=== PATIENT | male | born 1950 | race Caucasian/White ===

== ENCOUNTER 2022-05-18 10:08 | Outpatient (CLI) | payer MEDICARE, BC, SELFPAY ==
[2022-05-18 17:20] LABS: Chloride* 104 mmol/L (96-114)
[2022-05-18 17:21] LABS: Potassium* 4.5 mmol/L (3.6-5.1); Sodium* 138 mmol/L (135-149)
[2022-05-18 17:23] LABS: Cholesterol* 162 mg/dL (90-199)
[2022-05-18 17:24] LABS: Blood Urea Nitrogen* 19 mg/dL (7-30); Calcium* 9.3 mg/dL (8.4-10.6); Carbon Dioxide* 31 mmol/L (20-32); Creatinine* 1.3 mg/dL (0.5-1.5); Estimated Glomerular Filt Rate 59 ml/min; Glucose* 91 mg/dL (60-115); Triglycerides* 55 mg/dL (40-149)
[2022-05-18 17:25] LABS: HDL Cholesterol* 52 mg/dL (>=40); LDL Cholesterol Calculated 99 mg/dL (<100)
[2022-05-18 17:27] LABS: C Reactive Protein* 0.6 mg/dL (0.5-1.0)
[2022-05-18 17:53] LABS: PSA Screen* 0.46 ng/mL (0.10-4.00)
== END 2022-05-18 10:09 | disposition home or self-care (01) ==
PROVIDERS: PCP Family Medicine; Visit Provider Family Medicine
DX: Z00.00 Encounter for general adult medical examination without abnormal findings (principal); M25.50 Pain in unspecified joint; Z13.1 Encounter for screening for diabetes mellitus; Z13.6 Encounter for screening for cardiovascular disorders; Z12.5 Encounter for screening for malignant neoplasm of prostate
CPT/HCPCS: 80048; 80061; 84153; 86140

== ENCOUNTER 2023-05-22 10:29 | Outpatient (CLI) | payer MEDICARE, BC, SELFPAY | END 2023-05-22 10:30 | disposition home or self-care (01) | LOC: LONREF 10:32 | PROVIDERS: PCP Family Medicine; Visit Provider Family Medicine | DX: Z00.00 Encounter for general adult medical examination without abnormal findings (principal); Z13.1 Encounter for screening for diabetes mellitus | CPT/HCPCS: 80048 ==

== ENCOUNTER 2025-01-17 08:38 | Outpatient (CLI) | payer MEDICARE, BC, SELFPAY | END 2025-01-17 08:39 | disposition home or self-care (01) | PROVIDERS: PCP Family Medicine; Visit Provider Family Medicine | DX: M25.50 Pain in unspecified joint (principal); Z12.5 Encounter for screening for malignant neoplasm of prostate; Z13.6 Encounter for screening for cardiovascular disorders; Z13.0 Encounter for screening for diseases of the blood and blood-forming organs and certain disorders involving the immune mechanism; Z13.1 Encounter for screening for diabetes mellitus | CPT/HCPCS: 80048; 80061; G0103 ==